=== PATIENT | female | born 1995 | race American Indian/Alaskan Native ===

== ENCOUNTER 2016-04-07 13:35 | Inpatient (IN) | payer MEDICAID ==
[2016-04-07 14:53] LABS: Basophils % (Auto) 0.1 % (0.0-1.8); Eosinophils % (Auto) 0.3 % (0.0-4.3); Hematocrit 33.2 % (30.3-42.9); Hemoglobin 10.8 gm/dl (10.1-14.3); Mean Corpuscular HGB Conc 33 % (30-34); Mean Corpuscular Hemoglobin 28 pg (28-32); Mean Corpuscular Volume 85 fl (79-97); Platelet Count 169 K/mm3 (140-440); Red Blood Count 3.92 M/mm3 (3.65-5.03); Red Cell Distribution Width 14.1 % (13.2-15.2); White Blood Count 11.8 K/mm3 (4.5-11.0)
--- NOTE | 2016-04-07 14:56 | History and Physical Report ---
History of Present Illness Date of examination: 04/07/16 Date of admission: 04/07/16 13:35 Chief complaint: Ruptured membranes at 8 AM today History of present illness: 20 year-old at 37+3 weeks presents with above complaints and issues, she is a [facility] patient. care complicated by late presentation at ~ 21 weeks otherwise unremarkable. She is GBS positive and allergic to penicillin Past History Past Medical History: no pertinent history Past Surgical History: tonsillectomy [employer] History: chlamydia, trichomonas Social history: single, full code. denies: smoking, alcohol abuse, prescription drug abuse, IV drug use - Obstetrical History Expected Date of Delivery: 04/25/16 Actual Gestation: 37 Week(s) 3 Day(s) : 2 Para: 0 Medications and Allergies Allergies Allergy/AdvReac Type Severity Reaction Status Date / Time Penicillins Allergy Unknown Verified 03/15/16 00:14 Review of Systems Constitutional: no fever, no chills, no sweats Eyes: no diplopia, no photophobia Cardiovascular: no chest pain, no orthopnea, no syncope, no lightheadedness, no shortness of breath, no dyspnea on exertion, no high blood pressure Respiratory: no shortness of breath, no dyspnea on exertion Gastrointestinal: abdominal pain (Mild painful contractions), no nausea, no vomiting Genitourinary: leakage of fluid, no vaginal bleeding, no vaginal discharge - Vital Signs Vital signs: Vital Signs Temp Pulse Resp BP 98.1 F 107 H 18 123/69 04/07/16 13:53 04/07/16 13:53 04/07/16 13:53 04/07/16 13:53 Temp Pulse Resp BP Pulse Ox 98.1 F 107 H 18 123/69 04/07/16 13:53 04/07/16 13:53 04/07/16 13:53 04/07/16 13:53 - Physical Exam Abdomen: Positive: normal appearance, soft. Negative: distention, tenderness, guarding, rigidity Genitourinary (Female): Positive: normal external genitalia Uterus: Positive: enlarged (EFW ~ 3400). Negative: tender Extremities: Positive: normal - Obstetrical FHR: category 1 Cervical Dilatation: 3 (per RN exam) station: -3 Results All other labs normal. Assessment and Plan A: 20 y/o at 37+3 wks with SROM -Cat 1 tracing P: -Admit -Routine labs -GBS prophylaxis -Epidural prn -Anticipate - Patient Problems (1) 37 weeks gestation of Current Visit: Yes Status: Acute (2) Spontaneous rupture of amniotic membranes Current Visit: Yes Status: Acute
[2016-04-07] MEDS ORDERED: BRETHINE IVP PRN (14:59)
[2016-04-07] MEDS ORDERED: ePHEDrine SULFATE IV PRN ×2 (14:59→23:17)
[2016-04-07] MEDS ORDERED: MINERAL OIL PO PRN (14:59)
[2016-04-07] MEDS ORDERED: BRETHINE SUB-Q PRN (14:59)
[2016-04-07] MEDS ORDERED: ZOFRAN IV PRN (14:59)
[2016-04-07] MEDS ORDERED: VANCOMYCIN/NS 1 GM/250 ML 250 ML IV SCH (15:00)
[2016-04-07] MEDS ORDERED: PITOCin/NS 30 UNIT/500ML 500 ML IV SCH ×2 (15:00)
[2016-04-07] MEDS ORDERED: PITOCin/NS 20 UNIT/1000ML DRIP 1,000 ML IV SCH (15:00)
[2016-04-07] MEDS: LACTATED RINGERS 1,000 ML IV SCH ×3 (15:19→23:00)
[2016-04-07] MEDS ORDERED: NACL 0.9% 1000 ML 1,000 ML ONE ×2 (17:12→17:16)
--- NOTE | 2016-04-07 17:12 | Progress Note ---
Assessment and Plan A: 20 y/o at 37+3 wks with SROM -Cat 2 tracing P: -IUPC placed, will start amnioinfusion -Continue present care -Anticipate normal vaginal delivery - Patient Problems (1) 37 weeks gestation of Current Visit: Yes Status: Acute (2) Spontaneous rupture of amniotic membranes Current Visit: Yes Status: Acute Subjective - Subjective Date of service: 04/07/16 Interval history: Patient with intermittent variable decelerations, still with moderate variability and intermittent contractions Exam, she is 4/100/-1 station Patient reports: new complaints, loss of fluid, contractions, no vaginal bleeding Objective - Vital Signs Vital Signs: Vital Signs - 12hr 04/07/16 04/07/16 04/07/16 13:53 16:53 16:54 Temperature 98.1 F 100.0 F H Pulse Rate 107 H 117 H Pulse Rate [ 107 H 117 H From Monitor] Respiratory 18 18 Rate Blood Pressure 123/69 130/67 Blood Pressure 123/69 130/67 [Left Arm] - Exam FHR: category 2 Cervical Dilatation: 4 Cervical Effacement Percentage: 100 station: -1 Uterine Contraction Pattern: Irregular - Labs Labs: Abnormal Labs 04/07/16 14:20 WBC 11.8 H Lymph % (Auto) 12.4 L [place] # 0.9 H Seg Neutrophils % 80.0 H Seg Neutrophils # 9.4 H Laboratory Results - last 24 hr 04/07/16 04/07/16 14:20 14:20 WBC 11.8 H RBC 3.92 Hgb 10.8 Hct 33.2 MCV 85 MCH 28 MCHC 33 RDW 14.1 Plt Count 169 Lymph % (Auto) 12.4 L [place] % (Auto) 7.2 Eos % (Auto) 0.3 Baso % (Auto) 0.1 Lymph # 1.5 [place] # 0.9 H Eos # 0.0 Baso # 0.0 Seg Neutrophils % 80.0 H Seg Neutrophils # 9.4 H Blood Type O POSITIVE Antibody Screen Negative
[2016-04-07] MEDS ORDERED: NACL 0.9% 1000 ML 1,000 ML VG SCH (18:00)
--- NOTE | 2016-04-07 20:17 | Progress Note ---
Assessment and Plan A: 20 y/o at 37+3 wks with SROM -Cat 1 tracing P: -Continue expectant mgt -Re-assess in ~ 1-2 hrs - Patient Problems (1) 37 weeks gestation of Current Visit: Yes Status: Acute (2) Spontaneous rupture of amniotic membranes Current Visit: Yes Status: Acute Subjective - Subjective Date of service: 04/07/16 Interval history: Reviewed tracing, improved and now cat 1 tracing. Patient reports: new complaints, loss of fluid, contractions, no vaginal bleeding Objective - Vital Signs Vital Signs: Vital Signs - 12hr 04/07/16 04/07/16 04/07/16 13:53 16:53 16:54 Temperature 98.1 F 100.0 F H Pulse Rate 107 H 117 H Pulse Rate [ 107 H 117 H From Monitor] Respiratory 18 18 Rate Blood Pressure 123/69 130/67 Blood Pressure 123/69 130/67 [Left Arm] 04/07/16 04/07/16 18:59 19:00 Temperature 99.5 F Pulse Rate 112 H Pulse Rate [ From Monitor] Respiratory 18 Rate Blood Pressure 133/90 Blood Pressure [Left Arm] - Exam FHR: category 1 Cervical Dilatation: 4.5 Cervical Effacement Percentage: 100 station: -1 - Labs Labs: Abnormal Labs 04/07/16 14:20 WBC 11.8 H Lymph % (Auto) 12.4 L [place] # 0.9 H Seg Neutrophils % 80.0 H Seg Neutrophils # 9.4 H Laboratory Results - last 24 hr 04/07/16 04/07/16 14:20 14:20 WBC 11.8 H RBC 3.92 Hgb 10.8 Hct 33.2 MCV 85 MCH 28 MCHC 33 RDW 14.1 Plt Count 169 Lymph % (Auto) 12.4 L [place] % (Auto) 7.2 Eos % (Auto) 0.3 Baso % (Auto) 0.1 Lymph # 1.5 [place] # 0.9 H Eos # 0.0 Baso # 0.0 Seg Neutrophils % 80.0 H Seg Neutrophils # 9.4 H Blood Type O POSITIVE Antibody Screen Negative
[2016-04-07] MEDS: SUBLIMAZE IV PRN ×2 (20:30→22:37)
--- NOTE | 2016-04-07 22:05 | Progress Note ---
Assessment and Plan A: 20 y/o at 37+3 wks with SROM -Cat 2 tracing P: -FSE placed -Epidural now -Continue expectant mgt -Anticipate - Patient Problems (1) 37 weeks gestation of Current Visit: Yes Status: Acute (2) Spontaneous rupture of amniotic membranes Current Visit: Yes Status: Acute Subjective - Subjective Date of service: 04/07/16 Interval history: Patient with some intermittent non-recurring variable decels, no cervical change but station is lower and she is having bloody show Patient reports: new complaints, loss of fluid, vaginal bleeding (bloody show), movement normal, contractions Objective - Vital Signs Vital Signs: Vital Signs - 12hr 04/07/16 04/07/16 04/07/16 13:53 16:53 16:54 Temperature 98.1 F 100.0 F H Pulse Rate 107 H 117 H Pulse Rate [ 107 H 117 H From Monitor] Respiratory 18 18 Rate Blood Pressure 123/69 130/67 Blood Pressure 123/69 130/67 [Left Arm] O2 Sat by Pulse Oximetry 04/07/16 04/07/16 04/07/16 18:59 19:00 20:30 Temperature 99.5 F Pulse Rate 112 H Pulse Rate [ From Monitor] Respiratory 18 18 Rate Blood Pressure 133/90 Blood Pressure [Left Arm] O2 Sat by Pulse Oximetry 04/07/16 21:45 Temperature Pulse Rate 114 H Pulse Rate [ From Monitor] Respiratory Rate Blood Pressure Blood Pressure [Left Arm] O2 Sat by Pulse 99 Oximetry - Exam FHR: category 2 (intermittent non recurring variables but with mod variability and accel on scalp stim) Cervical Dilatation: 4.5 station: 0 Uterine Contraction Pattern: Regular - Labs Labs: Abnormal Labs 04/07/16 14:20 WBC 11.8 H Lymph % (Auto) 12.4 L [place] # 0.9 H Seg Neutrophils % 80.0 H Seg Neutrophils # 9.4 H Laboratory Results - last 24 hr 04/07/16 04/07/16 14:20 14:20 WBC 11.8 H RBC 3.92 Hgb 10.8 Hct 33.2 MCV 85 MCH 28 MCHC 33 RDW 14.1 Plt Count 169 Lymph % (Auto) 12.4 L [place] % (Auto) 7.2 Eos % (Auto) 0.3 Baso % (Auto) 0.1 Lymph # 1.5 [place] # 0.9 H Eos # 0.0 Baso # 0.0 Seg Neutrophils % 80.0 H Seg Neutrophils # 9.4 H Blood Type O POSITIVE Antibody Screen Negative
[2016-04-07] MEDS ORDERED: ePHEDrine SULFATE ONE (22:52)
[2016-04-07] MEDS ORDERED: NARCAN 2 MG/2 ML IV PRN (23:17)
--- NOTE | 2016-04-07 23:17 | Anesthesia Consultation ---
Anesthesia Consult and Med Hx Date of service: 04/07/16 - Airway Anesthetic Teeth Evaluation: Good ROM Head & Neck: Adequate Mental/Hyoid Distance: Adequate Mallampati Class: Class II Intubation Access Assessment: Good - Pulmonary Exam CTA: Yes - Cardiac Exam Cardiac Exam: No Murmur - Pre-Operative Health Status ASA Pre-Surgery Classification: ASA2 Proposed Anesthetic Plan: Epidural - Pulmonary Hx Asthma: No COPD: No Hx Pneumonia: No - Cardiovascular System Hx Hypertension: No - Central Nervous System Hx Seizures: No Hx Psychiatric Problems: No - Endocrine Hx Renal Disease: No Hx End Stage Renal Disease: No Hx Hypothyroidism: No Hx Hyperthyroidism: No - Hematic Hx Anemia: No Hx Sickle Cell Disease: No - Other Systems Hx Alcohol Use: No
[2016-04-07] MEDS ORDERED: fentaNYL-BUPIV 2 MCG/ML-0.125% 100 ML EPIDURAL SCH (23:45)
--- NOTE | 2016-04-08 00:14 | Progress Note ---
Assessment and Plan - Patient Problems (1) 37 weeks gestation of Current Visit: Yes Status: Acute (2) Spontaneous rupture of amniotic membranes Current Visit: Yes Status: Acute Subjective - Subjective Date of service: 04/08/16 Interval history: status post epidural, no decels in 20 min Patient reports: new complaints, loss of fluid, vaginal bleeding (bloody show), movement normal, contractions Objective - Vital Signs Vital Signs: Vital Signs - 12hr 04/07/16 04/07/16 04/07/16 13:53 16:53 16:54 Temperature 98.1 F 100.0 F H Pulse Rate 107 H 117 H Pulse Rate [ 107 H 117 H From Monitor] Respiratory 18 18 Rate Blood Pressure 123/69 130/67 Blood Pressure 123/69 130/67 [Left Arm] O2 Sat by Pulse Oximetry 04/07/16 04/07/16 04/07/16 18:59 19:00 20:30 Temperature 99.5 F Pulse Rate 112 H Pulse Rate [ From Monitor] Respiratory 18 18 Rate Blood Pressure 133/90 Blood Pressure [Left Arm] O2 Sat by Pulse Oximetry 04/07/16 04/07/16 04/07/16 21:45 22:37 23:01 Temperature Pulse Rate 114 H 119 H Pulse Rate [ From Monitor] Respiratory 18 Rate Blood Pressure Blood Pressure [Left Arm] O2 Sat by Pulse 99 100 Oximetry 04/07/16 04/07/16 04/07/16 23:04 23:06 23:08 Temperature Pulse Rate 122 H 121 H 113 H Pulse Rate [ From Monitor] Respiratory Rate Blood Pressure 127/63 135/62 135/63 Blood Pressure [Left Arm] O2 Sat by Pulse 99 Oximetry 04/07/16 04/07/16 04/07/16 23:10 23:11 23:12 Temperature Pulse Rate 107 H 102 H 107 H Pulse Rate [ From Monitor] Respiratory Rate Blood Pressure 127/61 122/59 Blood Pressure [Left Arm] O2 Sat by Pulse 99 Oximetry 04/07/16 04/07/16 04/07/16 23:14 23:16 23:18 Temperature Pulse Rate 89 90 95 H Pulse Rate [ From Monitor] Respiratory Rate Blood Pressure 140/65 142/62 131/60 Blood Pressure [Left Arm] O2 Sat by Pulse 99 Oximetry 04/07/16 04/07/16 04/07/16 23:20 23:21 23:22 Temperature Pulse Rate 89 109 H 114 H Pulse Rate [ From Monitor] Respiratory Rate Blood Pressure 120/60 107/52 Blood Pressure [Left Arm] O2 Sat by Pulse 100 Oximetry 04/07/16 04/07/16 04/07/16 23:26 23:30 23:31 Temperature Pulse Rate 98 H 124 H Pulse Rate [ From Monitor] Respiratory 20 Rate Blood Pressure Blood Pressure [Left Arm] O2 Sat by Pulse 100 100 Oximetry 04/07/16 04/07/16 04/07/16 23:36 23:46 23:48 Temperature Pulse Rate 111 H 176 H 103 H Pulse Rate [ From Monitor] Respiratory Rate Blood Pressure 136/90 Blood Pressure [Left Arm] O2 Sat by Pulse 99 100 Oximetry 04/07/16 04/07/16 04/08/16 23:53 23:58 00:03 Temperature Pulse Rate 106 H 97 H 98 H Pulse Rate [ From Monitor] Respiratory Rate Blood Pressure Blood Pressure [Left Arm] O2 Sat by Pulse 100 100 100 Oximetry 04/08/16 00:08 Temperature Pulse Rate 93 H Pulse Rate [ From Monitor] Respiratory Rate Blood Pressure Blood Pressure [Left Arm] O2 Sat by Pulse 100 Oximetry - Exam FHR: category 1 Cervical Dilatation: 6 - Labs Labs: Abnormal Labs 04/07/16 14:20 WBC 11.8 H Lymph % (Auto) 12.4 L [place] # 0.9 H Seg Neutrophils % 80.0 H Seg Neutrophils # 9.4 H Laboratory Results - last 24 hr 04/07/16 04/07/16 14:20 14:20 WBC 11.8 H RBC 3.92 Hgb 10.8 Hct 33.2 MCV 85 MCH 28 MCHC 33 RDW 14.1 Plt Count 169 Lymph % (Auto) 12.4 L [place] % (Auto) 7.2 Eos % (Auto) 0.3 Baso % (Auto) 0.1 Lymph # 1.5 [place] # 0.9 H Eos # 0.0 Baso # 0.0 Seg Neutrophils % 80.0 H Seg Neutrophils # 9.4 H Blood Type O POSITIVE Antibody Screen Negative
[2016-04-08] MEDS: LACTATED RINGERS 1,000 ML IV SCH (00:40)
[2016-04-08] MEDS ORDERED: XYLOCAINE 2% INFILTRATI ONE ×2 (02:31→03:33)
--- NOTE | 2016-04-08 03:20 | Progress Note ---
Assessment and Plan A: 20 y/o at 37+3 wks with SROM -Cat 1 tracing P: -Patient is fully dilated -Will begin active pushing soon -Anticipate normal vaginal delivery - Patient Problems (1) 37 weeks gestation of Current Visit: Yes Status: Acute (2) Spontaneous rupture of amniotic membranes Current Visit: Yes Status: Acute Subjective - Subjective Date of service: 04/08/16 Interval history: Patient fully dilated per RN, begin active pushing soon Patient reports: new complaints, loss of fluid, vaginal bleeding (bloody show), movement normal, contractions Objective - Vital Signs Vital Signs: Vital Signs - 12hr 04/07/16 04/07/16 04/07/16 16:53 16:54 18:59 Temperature 100.0 F H Pulse Rate 117 H 112 H Pulse Rate [ 117 H From Monitor] Respiratory 18 Rate Blood Pressure 130/67 133/90 Blood Pressure 130/67 [Left Arm] O2 Sat by Pulse Oximetry 04/07/16 04/07/16 04/07/16 19:00 20:30 21:45 Temperature 99.5 F Pulse Rate 114 H Pulse Rate [ From Monitor] Respiratory 18 18 Rate Blood Pressure Blood Pressure [Left Arm] O2 Sat by Pulse 99 Oximetry 04/07/16 04/07/16 04/07/16 22:37 23:01 23:04 Temperature Pulse Rate 119 H 122 H Pulse Rate [ From Monitor] Respiratory 18 Rate Blood Pressure 127/63 Blood Pressure [Left Arm] O2 Sat by Pulse 100 Oximetry 04/07/16 04/07/16 04/07/16 23:06 23:08 23:10 Temperature Pulse Rate 121 H 113 H 107 H Pulse Rate [ From Monitor] Respiratory Rate Blood Pressure 135/62 135/63 127/61 Blood Pressure [Left Arm] O2 Sat by Pulse 99 Oximetry 04/07/16 04/07/16 04/07/16 23:11 23:12 23:14 Temperature Pulse Rate 102 H 107 H 89 Pulse Rate [ From Monitor] Respiratory Rate Blood Pressure 122/59 140/65 Blood Pressure [Left Arm] O2 Sat by Pulse 99 Oximetry 04/07/16 04/07/16 04/07/16 23:16 23:18 23:20 Temperature Pulse Rate 90 95 H 89 Pulse Rate [ From Monitor] Respiratory Rate Blood Pressure 142/62 131/60 120/60 Blood Pressure [Left Arm] O2 Sat by Pulse 99 Oximetry 04/07/16 04/07/16 04/07/16 23:21 23:22 23:26 Temperature Pulse Rate 109 H 114 H 98 H Pulse Rate [ From Monitor] Respiratory Rate Blood Pressure 107/52 Blood Pressure [Left Arm] O2 Sat by Pulse 100 100 Oximetry 04/07/16 04/07/16 04/07/16 23:30 23:31 23:36 Temperature Pulse Rate 124 H 111 H Pulse Rate [ From Monitor] Respiratory 20 Rate Blood Pressure Blood Pressure [Left Arm] O2 Sat by Pulse 100 99 Oximetry 04/07/16 04/07/16 04/07/16 23:46 23:48 23:53 Temperature Pulse Rate 176 H 103 H 106 H Pulse Rate [ From Monitor] Respiratory Rate Blood Pressure 136/90 Blood Pressure [Left Arm] O2 Sat by Pulse 100 100 Oximetry 04/07/16 04/08/16 04/08/16 23:58 00:03 00:08 Temperature Pulse Rate 97 H 98 H 93 H Pulse Rate [ From Monitor] Respiratory Rate Blood Pressure Blood Pressure [Left Arm] O2 Sat by Pulse 100 100 100 Oximetry 04/08/16 04/08/16 04/08/16 00:13 00:18 00:23 Temperature Pulse Rate 112 H 109 H 108 H Pulse Rate [ From Monitor] Respiratory Rate Blood Pressure Blood Pressure [Left Arm] O2 Sat by Pulse 100 100 100 Oximetry 04/08/16 04/08/16 04/08/16 00:24 00:28 00:33 Temperature Pulse Rate 106 H 92 H 97 H Pulse Rate [ From Monitor] Respiratory Rate Blood Pressure 162/67 Blood Pressure [Left Arm] O2 Sat by Pulse 100 100 Oximetry 04/08/16 04/08/16 04/08/16 00:38 00:42 00:43 Temperature Pulse Rate 91 H 101 H 95 H Pulse Rate [ From Monitor] Respiratory Rate Blood Pressure 126/80 Blood Pressure [Left Arm] O2 Sat by Pulse 100 100 Oximetry 04/08/16 04/08/16 04/08/16 00:48 00:53 00:54 Temperature Pulse Rate 105 H 90 88 Pulse Rate [ From Monitor] Respiratory Rate Blood Pressure 132/65 Blood Pressure [Left Arm] O2 Sat by Pulse 100 100 Oximetry 04/08/16 04/08/16 04/08/16 00:58 01:03 01:08 Temperature Pulse Rate 95 H 88 93 H Pulse Rate [ From Monitor] Respiratory Rate Blood Pressure Blood Pressure [Left Arm] O2 Sat by Pulse 100 100 100 Oximetry 04/08/16 04/08/16 04/08/16 01:13 01:18 01:23 Temperature Pulse Rate 90 95 H 92 H Pulse Rate [ From Monitor] Respiratory Rate Blood Pressure 138/71 Blood Pressure [Left Arm] O2 Sat by Pulse 100 100 100 Oximetry 04/08/16 04/08/16 04/08/16 01:28 01:33 01:38 Temperature Pulse Rate 86 90 89 Pulse Rate [ From Monitor] Respiratory Rate Blood Pressure Blood Pressure [Left Arm] O2 Sat by Pulse 100 100 100 Oximetry 04/08/16 04/08/16 04/08/16 01:43 01:48 01:53 Temperature Pulse Rate 92 H 95 H 91 H Pulse Rate [ From Monitor] Respiratory Rate Blood Pressure Blood Pressure [Left Arm] O2 Sat by Pulse 100 99 100 Oximetry 04/08/16 04/08/16 04/08/16 01:54 01:58 02:03 Temperature Pulse Rate 86 105 H 98 H Pulse Rate [ From Monitor] Respiratory Rate Blood Pressure 129/58 Blood Pressure [Left Arm] O2 Sat by Pulse 100 100 Oximetry 04/08/16 04/08/16 04/08/16 02:08 02:13 02:18 Temperature Pulse Rate 94 H 98 H 85 Pulse Rate [ From Monitor] Respiratory Rate Blood Pressure Blood Pressure [Left Arm] O2 Sat by Pulse 99 99 99 Oximetry 04/08/16 04/08/16 04/08/16 02:23 02:28 02:33 Temperature Pulse Rate 93 H 94 H 100 H Pulse Rate [ From Monitor] Respiratory Rate Blood Pressure 124/59 Blood Pressure [Left Arm] O2 Sat by Pulse 99 99 99 Oximetry 04/08/16 04/08/16 04/08/16 02:38 02:43 02:48 Temperature Pulse Rate 121 H 103 H 123 H Pulse Rate [ From Monitor] Respiratory Rate Blood Pressure Blood Pressure [Left Arm] O2 Sat by Pulse 97 100 99 Oximetry 04/08/16 04/08/16 04/08/16 02:53 02:58 03:03 Temperature Pulse Rate 106 H 94 H 120 H Pulse Rate [ From Monitor] Respiratory Rate Blood Pressure 135/68 Blood Pressure [Left Arm] O2 Sat by Pulse 100 100 100 Oximetry 04/08/16 04/08/16 03:08 03:13 Temperature Pulse Rate 110 H 115 H Pulse Rate [ From Monitor] Respiratory Rate Blood Pressure Blood Pressure [Left Arm] O2 Sat by Pulse 100 100 Oximetry - Exam FHR: category 1 Cervical Dilatation: 10 station: +1 - Labs Labs: Abnormal Labs 04/07/16 14:20 WBC 11.8 H Lymph % (Auto) 12.4 L [place] # 0.9 H Seg Neutrophils % 80.0 H Seg Neutrophils # 9.4 H Laboratory Results - last 24 hr 04/07/16 04/07/16 14:20 14:20 WBC 11.8 H RBC 3.92 Hgb 10.8 Hct 33.2 MCV 85 MCH 28 MCHC 33 RDW 14.1 Plt Count 169 Lymph % (Auto) 12.4 L [place] % (Auto) 7.2 Eos % (Auto) 0.3 Baso % (Auto) 0.1 Lymph # 1.5 [place] # 0.9 H Eos # 0.0 Baso # 0.0 Seg Neutrophils % 80.0 H Seg Neutrophils # 9.4 H Blood Type O POSITIVE Antibody Screen Negative
[2016-04-08] MEDS: PITOCin/NS 20 UNIT/1000ML DRIP 1,000 ML IV SCH ×2 (03:51→05:05)
--- NOTE | 2016-04-08 04:05 | Procedure Note ---
OB Delivery Note - Delivery Date of Delivery: 04/08/16 Surgeon: VIRGIL RODRIGUEZ Estimated blood loss: 200cc - Vaginal Delivery presentation: vertex, compound (Both arms preceeding caput) Delivery position: OA Intrapartum events: mult.variable deceleratio Delivery induction: none Delivery monitor: external FHT, external uterine, internal FHT, internal uterine Route of delivery: Delivery placenta: spontaneous Delivery cord: 3 umbilical vessels, other (short cord) Episiotomy: none Delivery laceration: 2nd degree Delivery repair: vicryl Anesthesia: epidural - A at 1 minute: 5 at 5 minutes: 8 Gender: Female (Del @ 03:49 AM, weight is 6#6 or 2890 gms)
[2016-04-08] MEDS ORDERED: LANSINOH TP PRN (04:06)
[2016-04-08] MEDS ORDERED: PHENERGAN PR PRN (04:06)
[2016-04-08] MEDS ORDERED: TUCKS PAD TP PRN (04:06)
[2016-04-08] MEDS ORDERED: ANUCORT-HC PR PRN (04:06)
[2016-04-08] MEDS ORDERED: DULCOLAX PR PRN (04:06)
[2016-04-08] MEDS ORDERED: PHENERGAN PO PRN (04:06)
[2016-04-08] MEDS ORDERED: MILK OF MAGNESIA PO PRN (04:06)
[2016-04-08] MEDS ORDERED: ZOFRAN IV PRN (04:06)
[2016-04-08] MEDS ORDERED: TYLENOL PO PRN (04:06)
[2016-04-08] MEDS ORDERED: DERMOPLAST TP PRN (04:06)
[2016-04-08] MEDS ORDERED: BENADRYL PO PRN (04:06)
[2016-04-08] MEDS ORDERED: SODIUM CHLORIDE FLUSH SYRINGE 10 ML IV NR (05:00)
[2016-04-08] MEDS: NORCO 5/325 PO PRN (07:45)
[2016-04-08] MEDS: PRENATAL VITAMIN PO SCH (09:56)
[2016-04-08] MEDS: FEOSOL PO SCH ×2 (09:56→23:50)
[2016-04-08] MEDS: COLACE PO SCH ×2 (09:56→23:51)
--- NOTE | 2016-04-08 09:58 | Progress Note ---
Subjective Date of service: 04/08/16 Interval history: 1st day after normal vaginal delivery Patient is active, ambulated well. Pain is well controlled. No residual neurological deficit. No anesthesia complications Objective - Constitutional Vitals: Vital Signs - 12hr 04/07/16 04/07/16 04/07/16 22:37 23:01 23:04 Temperature Pulse Rate 119 H 122 H Pulse Rate [ From Monitor] Pulse Rate [ Left Radial] Respiratory 18 Rate Blood Pressure 127/63 Blood Pressure [Left Arm] O2 Sat by Pulse 100 Oximetry 04/07/16 04/07/16 04/07/16 23:06 23:08 23:10 Temperature Pulse Rate 121 H 113 H 107 H Pulse Rate [ From Monitor] Pulse Rate [ Left Radial] Respiratory Rate Blood Pressure 135/62 135/63 127/61 Blood Pressure [Left Arm] O2 Sat by Pulse 99 Oximetry 04/07/16 04/07/16 04/07/16 23:11 23:12 23:14 Temperature Pulse Rate 102 H 107 H 89 Pulse Rate [ From Monitor] Pulse Rate [ Left Radial] Respiratory Rate Blood Pressure 122/59 140/65 Blood Pressure [Left Arm] O2 Sat by Pulse 99 Oximetry 04/07/16 04/07/16 04/07/16 23:16 23:18 23:20 Temperature Pulse Rate 90 95 H 89 Pulse Rate [ From Monitor] Pulse Rate [ Left Radial] Respiratory Rate Blood Pressure 142/62 131/60 120/60 Blood Pressure [Left Arm] O2 Sat by Pulse 99 Oximetry 04/07/16 04/07/16 04/07/16 23:21 23:22 23:26 Temperature Pulse Rate 109 H 114 H 98 H Pulse Rate [ From Monitor] Pulse Rate [ Left Radial] Respiratory Rate Blood Pressure 107/52 Blood Pressure [Left Arm] O2 Sat by Pulse 100 100 Oximetry 04/07/16 04/07/16 04/07/16 23:30 23:31 23:36 Temperature Pulse Rate 124 H 111 H Pulse Rate [ From Monitor] Pulse Rate [ Left Radial] Respiratory 20 Rate Blood Pressure Blood Pressure [Left Arm] O2 Sat by Pulse 100 99 Oximetry 04/07/16 04/07/16 04/07/16 23:46 23:48 23:53 Temperature Pulse Rate 176 H 103 H 106 H Pulse Rate [ From Monitor] Pulse Rate [ Left Radial] Respiratory Rate Blood Pressure 136/90 Blood Pressure [Left Arm] O2 Sat by Pulse 100 100 Oximetry 04/07/16 04/08/16 04/08/16 23:58 00:03 00:08 Temperature Pulse Rate 97 H 98 H 93 H Pulse Rate [ From Monitor] Pulse Rate [ Left Radial] Respiratory Rate Blood Pressure Blood Pressure [Left Arm] O2 Sat by Pulse 100 100 100 Oximetry 04/08/16 04/08/16 04/08/16 00:13 00:18 00:23 Temperature Pulse Rate 112 H 109 H 108 H Pulse Rate [ From Monitor] Pulse Rate [ Left Radial] Respiratory Rate Blood Pressure Blood Pressure [Left Arm] O2 Sat by Pulse 100 100 100 Oximetry 04/08/16 04/08/16 04/08/16 00:24 00:28 00:33 Temperature Pulse Rate 106 H 92 H 97 H Pulse Rate [ From Monitor] Pulse Rate [ Left Radial] Respiratory Rate Blood Pressure 162/67 Blood Pressure [Left Arm] O2 Sat by Pulse 100 100 Oximetry 04/08/16 04/08/16 04/08/16 00:38 00:42 00:43 Temperature Pulse Rate 91 H 101 H 95 H Pulse Rate [ From Monitor] Pulse Rate [ Left Radial] Respiratory Rate Blood Pressure 126/80 Blood Pressure [Left Arm] O2 Sat by Pulse 100 100 Oximetry 04/08/16 04/08/16 04/08/16 00:48 00:53 00:54 Temperature Pulse Rate 105 H 90 88 Pulse Rate [ From Monitor] Pulse Rate [ Left Radial] Respiratory Rate Blood Pressure 132/65 Blood Pressure [Left Arm] O2 Sat by Pulse 100 100 Oximetry 04/08/16 04/08/16 04/08/16 00:58 01:03 01:08 Temperature Pulse Rate 95 H 88 93 H Pulse Rate [ From Monitor] Pulse Rate [ Left Radial] Respiratory Rate Blood Pressure Blood Pressure [Left Arm] O2 Sat by Pulse 100 100 100 Oximetry 04/08/16 04/08/16 04/08/16 01:13 01:18 01:23 Temperature Pulse Rate 90 95 H 92 H Pulse Rate [ From Monitor] Pulse Rate [ Left Radial] Respiratory Rate Blood Pressure 138/71 Blood Pressure [Left Arm] O2 Sat by Pulse 100 100 100 Oximetry 04/08/16 04/08/16 04/08/16 01:28 01:33 01:38 Temperature Pulse Rate 86 90 89 Pulse Rate [ From Monitor] Pulse Rate [ Left Radial] Respiratory Rate Blood Pressure Blood Pressure [Left Arm] O2 Sat by Pulse 100 100 100 Oximetry 04/08/16 04/08/16 04/08/16 01:43 01:48 01:53 Temperature Pulse Rate 92 H 95 H 91 H Pulse Rate [ From Monitor] Pulse Rate [ Left Radial] Respiratory Rate Blood Pressure Blood Pressure [Left Arm] O2 Sat by Pulse 100 99 100 Oximetry 04/08/16 04/08/16 04/08/16 01:54 01:58 02:03 Temperature Pulse Rate 86 105 H 98 H Pulse Rate [ From Monitor] Pulse Rate [ Left Radial] Respiratory Rate Blood Pressure 129/58 Blood Pressure [Left Arm] O2 Sat by Pulse 100 100 Oximetry 04/08/16 04/08/16 04/08/16 02:08 02:13 02:18 Temperature Pulse Rate 94 H 98 H 85 Pulse Rate [ From Monitor] Pulse Rate [ Left Radial] Respiratory Rate Blood Pressure Blood Pressure [Left Arm] O2 Sat by Pulse 99 99 99 Oximetry 04/08/16 04/08/16 04/08/16 02:23 02:28 02:33 Temperature Pulse Rate 93 H 94 H 100 H Pulse Rate [ From Monitor] Pulse Rate [ Left Radial] Respiratory Rate Blood Pressure 124/59 Blood Pressure [Left Arm] O2 Sat by Pulse 99 99 99 Oximetry 04/08/16 04/08/16 04/08/16 02:38 02:43 02:48 Temperature Pulse Rate 121 H 103 H 123 H Pulse Rate [ From Monitor] Pulse Rate [ Left Radial] Respiratory Rate Blood Pressure Blood Pressure [Left Arm] O2 Sat by Pulse 97 100 99 Oximetry 04/08/16 04/08/16 04/08/16 02:53 02:58 03:03 Temperature Pulse Rate 106 H 94 H 120 H Pulse Rate [ From Monitor] Pulse Rate [ Left Radial] Respiratory Rate Blood Pressure 135/68 Blood Pressure [Left Arm] O2 Sat by Pulse 100 100 100 Oximetry 04/08/16 04/08/16 04/08/16 03:08 03:13 03:18 Temperature Pulse Rate 110 H 115 H 101 H Pulse Rate [ From Monitor] Pulse Rate [ Left Radial] Respiratory Rate Blood Pressure Blood Pressure [Left Arm] O2 Sat by Pulse 100 100 100 Oximetry 04/08/16 04/08/16 04/08/16 03:23 03:24 03:28 Temperature Pulse Rate 99 H 114 H 178 H Pulse Rate [ From Monitor] Pulse Rate [ Left Radial] Respiratory Rate Blood Pressure 140/87 Blood Pressure [Left Arm] O2 Sat by Pulse 100 100 Oximetry 04/08/16 04/08/16 04/08/16 03:33 03:38 03:43 Temperature Pulse Rate 132 H 113 H 105 H Pulse Rate [ From Monitor] Pulse Rate [ Left Radial] Respiratory Rate Blood Pressure Blood Pressure [Left Arm] O2 Sat by Pulse 79 L 100 100 Oximetry 04/08/16 04/08/16 04/08/16 03:45 03:48 03:50 Temperature Pulse Rate 172 H 114 H 185 H Pulse Rate [ From Monitor] Pulse Rate [ Left Radial] Respiratory Rate Blood Pressure Blood Pressure [Left Arm] O2 Sat by Pulse 87 100 94 Oximetry 04/08/16 04/08/16 04/08/16 03:53 03:58 04:10 Temperature Pulse Rate 102 H 105 H 127 H Pulse Rate [ From Monitor] Pulse Rate [ Left Radial] Respiratory Rate Blood Pressure 121/56 137/97 Blood Pressure [Left Arm] O2 Sat by Pulse 100 100 Oximetry 04/08/16 04/08/16 04/08/16 04:25 04:40 04:55 Temperature Pulse Rate 101 H 95 H 98 H Pulse Rate [ From Monitor] Pulse Rate [ Left Radial] Respiratory Rate Blood Pressure 144/78 135/78 136/75 Blood Pressure [Left Arm] O2 Sat by Pulse Oximetry 04/08/16 04/08/16 04/08/16 05:07 05:10 06:00 Temperature 99.2 F 99 F Pulse Rate 89 Pulse Rate [ 104 H From Monitor] Pulse Rate [ Left Radial] Respiratory 18 18 Rate Blood Pressure 134/69 Blood Pressure 142/80 [Left Arm] O2 Sat by Pulse Oximetry 04/08/16 04/08/16 07:45 08:12 Temperature 98.3 F Pulse Rate Pulse Rate [ From Monitor] Pulse Rate [ 76 Left Radial] Respiratory 20 24 Rate Blood Pressure Blood Pressure 116/52 [Left Arm] O2 Sat by Pulse Oximetry - Labs CBC & Chem 7: 04/07/16 14:20 Labs: Abnormal lab results 04/07/16 Range/Units 14:20 WBC 11.8 H (4.5-11.0) K/mm3 Lymph % (Auto) 12.4 L (13.4-35.0) % [place] # 0.9 H (0.0-0.8) K/mm3 Seg Neutrophils % 80.0 H (40.0-70.0) % Seg Neutrophils # 9.4 H (1.8-7.7) K/mm3
[2016-04-08] MEDS: MOTRIN PO SCH ×3 (12:25→23:50)
[2016-04-08 16:25] LABS: Hematocrit 30.6 % (30.3-42.9); Hemoglobin 9.9 gm/dl (10.1-14.3)
[2016-04-09] MEDS: MOTRIN PO SCH ×3 (06:00→23:22)
[2016-04-09] MEDS ORDERED: BOOSTRIX IM ONE (06:05)
--- NOTE | 2016-04-09 08:15 | Progress Note ---
Assessment and Plan PPD # 1 s/p -Doing well P: -Continue routine care -Anticipate discharge in 24 hours - Patient Problems (1) 37 weeks gestation of Current Visit: Yes Status: Acute (2) Spontaneous rupture of amniotic membranes Current Visit: Yes Status: Acute Subjective - Subjective Date of service: 04/09/16 Principal diagnosis: PPD # 1 Interval history: Patient seen and examined, stable and well. Ambulating without difficulty, adequate bowel bladder function. Offered contraception would Depo, patient declined Patient reports: appetite normal, voiding normally, pain well controlled, ambulating normally, no dizzy ambulation [place]: doing well Objective - Vital Signs Latest vital signs: Vital Signs Temp Pulse Pulse Resp BP BP 04/09/16 04:57 97.8 F 72 18 134/71 04/08/16 16:23 97.8 F 84 20 122/84 04/08/16 11:59 97.7 F 80 16 124/84 Intake and Output 04/08/16 04/09/16 04/09/16 22:59 06:59 14:59 Intake Total 600 480 Balance 600 480 Intake: Oral 600 480 Other: Total, Intake Amount 240 120 # Voids Void 1 1 - Exam Abdomen: Present: normal appearance, soft. Absent: distention, tenderness, guarding, rigidity Uterus: Present: fundal height below umbilicus. Absent: tenderness Extremities: Present: normal - Labs Labs: Abnormal lab results 04/08/16 Range/Units 16:15 Hgb 9.9 L (10.1-14.3) gm/dl
--- NOTE | 2016-04-09 08:18 | Discharge Summary ---
Providers - Providers Date of Admission: 04/07/16 13:35 Date of discharge: 04/10/16 Attending physician: VIRGIL RODRIGUEZ Primary care physician: VIRGIL RODRIGUEZ Hospitalization Reason for admission: active labor Delivery: Episiotomy: none Laceration: 2nd degree Incision: dry, intact Other procedures: none complications: none Discharge diagnosis: IUP at term delivered [place] baby: female Hospital course: Uncomplicated course Condition at discharge: Good Disposition: DISCHARGED TO HOME OR SELFCARE - Discharge Diagnoses (1) (normal spontaneous vaginal delivery) Status: Acute (2) 37 weeks gestation of Status: Acute (3) Spontaneous rupture of amniotic membranes Status: Acute Plan - Discharge Medications Prescriptions: Ibuprofen [Motrin 600 MG tab] 600 mg PO Q8H PRN #30 tablet PRN Reason: Pain Multivitamin with Iron [Multivitamins with Iron] 1 each PO DAILY #30 tablet HYDROcodone/APAP 5-325 [[place] 5/325] 1 each PO Q6HR PRN #20 tablet PRN Reason: Pain - Provider Discharge Summary Activity: no sex for 6 weeks, no heavy lifting 4 weeks, no strenuous exercise Diet: routine Additional instructions: [] Smoking cessation referral if applicable(refer to patient education folder for contact #) [] Refer to [facility]'s [facility] Booklet Call your doctor immediately for: * Fever > 100.5 * Heavy vaginal bleeding ( >1 pad per hour) * Severe persistent headache * Shortness of breath * Reddened, hot, painful area to leg or breast * Drainage or odor from incision. * Keep incision clean and dry at all times and follow doctor's instructions regarding bathing/showering - Follow up plan Follow up: VIRGIL RODRIGUEZ MD [Primary Care Provider] - 6 Weeks
[2016-04-09] MEDS: FEOSOL PO SCH ×2 (12:10→22:12)
[2016-04-09] MEDS: COLACE PO SCH ×2 (12:10→22:12)
[2016-04-09] MEDS: PRENATAL VITAMIN PO SCH (12:10)
[2016-04-09] MEDS: NORCO 5/325 PO PRN (16:27)
[2016-04-10] MEDS: SENOKOT S PO SCH ×2 (02:11→06:36)
[2016-04-10] MEDS: MOTRIN PO SCH (05:34)
[2016-04-10 13:24] VITALS: BP 116/70
== END 2016-04-10 11:30 | disposition home or self-care (01) | DRG 775 ==
LOC: LD 13:35 → OB 04-08 05:26
PROVIDERS: ADMIT Obstetrics & Gynecology Gynecology; ATTEND Obstetrics & Gynecology Gynecology
PROC: 10E0XZZ Delivery of Products of Conception, External Approach (ICD-10-PCS; principal; 2016-04-08)
PROC: 0KQM0ZZ Repair Perineum Muscle, Open Approach (ICD-10-PCS; 2016-04-08)
PROC: 3E0S3CZ (ICD-10-PCS; 2016-04-08)
PROC: 00HU33Z Insertion of Infusion Device into Spinal Canal, Percutaneous Approach (ICD-10-PCS; 2016-04-08)
DX: O70.1 Second degree perineal laceration during delivery (principal); Z37.0 Single live birth; O99.824 Streptococcus B carrier state complicating childbirth; O76 Abnormality in fetal heart rate and rhythm complicating labor and delivery; O32.2XX0 Maternal care for transverse and oblique lie, not applicable or unspecified; O69.81X0 Labor and delivery complicated by cord around neck, without compression, not applicable or unspecified; Z3A.37 37 weeks gestation of pregnancy; Z88.0 Allergy status to penicillin; Z86.19 Personal history of other infectious and parasitic diseases; Z90.89 Acquired absence of other organs
CPT/HCPCS: 36415; 85014; 85018; 85025; 86850; 86900; 86901; 90471; 90715; 99211; A6250; G0463; J2590; J3010; J3370; J7030; J7120